=== PATIENT | male | born 1985 | race Caucasian/White ===

== ENCOUNTER 2017-07-05 15:25 | Observation (INO) | payer OTHER ==
--- NOTE | 2017-07-05 15:39 | PDOC ---
History of Present Illness - History of Present Illness Initial Comments: 07/05/17 16:00 Patient is a 32 year old male with a past medical history of DVTs (2) and chronic low back pain who presents with left leg pain since last night. Patient states last night he developed left thigh pain that radiates to his calf. Patient states that he took oxycodone last night for the leg pain which he normally takes for his chronic back pain. Patient was on Xarelto for his DVTs in the past. 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 Not on any current medications or blood thinners. He denies SOB, CP, h/o of blood clots in his chest. Allergies: NKDA PCP: Deondre Torres <Dian John - Last Filed: 07/05/17 17:20> <Esteban Vang - Last Filed: 07/05/17 18:16> - General Chief Complaint: Pain Stated Complaint: LEFT THIGH & CALF PAIN, DVT Time Seen by Provider: 07/05/17 15:38 Past History <Dian John - Last Filed: 07/05/17 17:20> - Past Medical History Anemia: No Asthma: No Cardiac Disorders: (DVT) COPD: No Dementia: No Diabetes: No HTN: No Hypercholesterolemia: No Liver Disease: No Seizures: No Thyroid Disease: No - Surgical History Abdominal Surgery: No Appendectomy: No Cardiac Surgery: No Cholecystectomy: No Lung Surgery: No - Suicide/Smoking/Psychosocial Hx Smoking History: Current every day smoker Have you smoked in the past 12 months: Yes Number of Cigarettes Smoked Daily: 20 'Breaking Loose' booklet given: 04/21/16 Hx Alcohol Use: Yes (social) Drug/Substance Use Hx: No Substance Use Type: Alcohol <Esteban Vang - Last Filed: 07/05/17 18:16> - Past Medical History Allergies/Adverse Reactions: Allergies Allergy/AdvReac Type Severity Reaction Status Date / Time [place] Allergy Verified 04/21/16 15:08 apple Allergy Verified 04/21/16 15:08 [place] Allergy Verified 04/21/16 15:08 No Known Drug Allergies Allergy Verified 04/21/16 15:08 Home Medications: Ambulatory Orders Lidocaine 5% Patch [Lidoderm -] 1 patch TP DAILY #30 patch 03/25/16 Methocarbamol [Robaxin] 500 mg PO TID PRN #30 tab 03/25/16 Oxycodone HCl/Acetaminophen [Percocet 5-325 mg Tablet] 2 tab PO TID PRN #18 tablet MDD 6 03/25/16 Enoxaparin Sodium [Lovenox] 140 mg SQ BID #60 ml 04/23/16 Oxycodone HCl/Acetaminophen [Percocet 10-325 mg Tablet] 1 each PO Q6H #10 tablet MDD 4 04/23/16 Review of Systems - Review of Systems Comments:: 07/05/17 16:01 CONSTITUTIONAL: Absent: fever, no chills, no fatigue EYES: Absent: visual changes ENT: Absent: ear pain, no sore throat CARDIOVASCULAR: Absent: chest pain, no palpitations RESPIRATORY: Absent: cough, no SOB GI: Absent: abdominal pain, no nausea, no vomiting, no constipation, no diarrhea GENITOURINARY: Absent: dysuria, no frequency, no hematuria MUSKULOSKELETAL: Present: left thigh/calf pain Absent: back pain, no arthralgia. SKIN: Absent: rash NEURO: Absent: headache <Dian John - Last Filed: 07/05/17 17:20> *Physical Exam - Vital Signs Last Vital Signs Temp Pulse Resp BP Pulse Ox 98.4 F 101 H 18 140/67 97 07/05/17 15:37 07/05/17 15:37 07/05/17 15:37 07/05/17 15:37 07/05/17 15:37 - Physical Exam Comments: 07/05/17 16:02 GENERAL: Well-appearing, well-nourished. No apparent distress. HEENT: Normocephalic, atraumatic. PERRL, EOM intact. CARDIOVASCULAR: Normal S1, S2. Regular rate and rhythm. PULMONARY: Clear to auscultation bilaterally. ABDOMEN: Soft, non-distended, non-tender. EXTREMITIES: Tenderness in left calf. No redness or sign of infection. Varicose veins noted. Normal ROM in all four extremities. SKIN: Warm, dry. No rash NEUROLOGICAL: No focal neurological deficits. <Dian John - Last Filed: 07/05/17 17:20> ED Treatment Course - RADIOLOGY Radiograph Interpretation: 07/05/17 17:18 US Vascular Leg Impression: DVT mild superficial femoral, popliteal and posterior tibial veins. Reported: Jamey Lozoya MD 07/05/17 1711 <Dian John - Last Filed: 07/05/17 17:20> - LABORATORY CBC & Chemistry Diagram: 07/05/17 17:15 07/05/17 17:15 - ADDITIONAL ORDERS Additional order review: 07/05/17 18:14 Positive DVT left leg Good pulses, painful left calf and thigh, varicosities as well Will admit patient to hospital Spoke with Hospitalist, Alessandro Driver Start on Lovenox, Alessandro Driver will decide on Coumadin or Xarelto again Pt is in agreement with plan <Esteban Vang - Last Filed: 07/05/17 18:16> *DC/Admit/Observation/Transfer - Attestations Scribe Attestion: 07/05/17 16:03 Documentation prepared by Dian John, acting as medical laboratory technicians for Esteban Vang MD. <Dian John - Last Filed: 07/05/17 17:20> - Discharge Dispostion Admit: Yes <Esteban Vang - Last Filed: 07/05/17 18:16> Diagnosis at time of Disposition: Left leg DVT Qualifiers: Affected thrombotic vein of extremity: popliteal Chronicity: acute Qualified Code(s): I82.432 - Acute embolism and thrombosis of left popliteal vein - Discharge Dispostion Condition at time of disposition: Good - Referrals Referrals: Deondre Torres [Primary Care Provider] - - Patient Instructions - Post Discharge Activity
[2017-07-05 15:50] VITALS: BMI 45.9
[2017-07-05 17:43] LABS: BASO % 0.6 % (0-2.0); EOS % 5.2 % (0-4.5); HEMATOCRIT 46.8 % (35.4-49); HEMOGLOBIN 15.4 GM/dl (11.7-16.9); LYMPH % 22.3 % (8-40); MCH 28.3 pg (25.7-33.7); MCHC 32.8 g/dl (32.0-35.9); MEAN CELL VOLUME 86.3 fl (80-96); MEAN PLT VOLUME 8.9 fl (7.5-11.1); MONO % 8.1 % (3.8-10.2); NEUT % 63.8 % (42.8-82.8); PLATELET COUNT 227 K/MM3 (134-434); RBC 5.43 M/mm3 (4.00-5.60); RDW 12.6 % (11.9-15.9); WHITE BLOOD COUNT 8.4 K/mm3 (4.0-10.8)
[2017-07-05 17:46] LABS: ALBUMIN 4.1 g/dl (3.5-5.0); ALK PHOS 81 U/L (32-92); ANION GAP 6 (8-16); BILIRUBIN,TOTAL 0.9 mg/dl (0.2-1.0); BLOOD UREA NITROGEN 9 mg/dl (7-18); CALCIUM 8.9 mg/dl (8.4-10.2); CHLORIDE 102 mmol/L (98-107); CO2 28 mmol/L (22-28); CREATININE 0.9 mg/dl (0.6-1.3); GLUCOSE,RANDOM 98 mg/dl (74-106); POTASSIUM 4.4 mmol/L (3.5-5.1); SGOT/AST 32 U/L (10-42); SGPT/ALT 42 U/L (10-40); SODIUM 136 mmol/L (136-145); TOT PROT 7.1 g/dl (6.4-8.3)
[2017-07-05 17:47] LABS: ACTIVATED PTT 29.4 SECONDS (24.0-38.9)
[2017-07-05 17:51] LABS: INR 1.12 (0.82-1.09); PROTHROMBIN TIME (PATIENT) 12.5 SEC (10.2-13.0)
[2017-07-05] MEDS ORDERED: ENOXAPARIN NA (PORCINE) 120 MG/0.8 ML DISP.SYRIN SQ SCH (18:30)
[2017-07-05] MEDS ORDERED: ENOXAPARIN NA (PORCINE) 120 MG/0.8 ML DISP.SYRIN SQ ONE (19:08)
--- NOTE | 2017-07-05 23:34 | HP ---
CHIEF COMPLAINT: Left Leg Pain PCP: HISTORY OF PRESENT ILLNESS: Thus is a 32 y/o man with a past medical history of Recurrent DVT, Chronic Back Pain, Current Smoker. Who presents to the ED with left leg pain x 1 day. Patient reports that the pain started while at rest waking him up. He describes it as sharp sheering pain. Patient reports being taken off of Xarelto 2 years ago. Patient denies SOB, CP, palpitations. Patient denies fever, chills, cough, AP, N/V/D, constipation, dysuria. ER course was notable for: (1) Doppler- DVT mid superficial femoral, popliteal and posterior tibial veins (2) (3) Recent Travel: None PAST MEDICAL HISTORY: See HPI PAST SURGICAL HISTORY: Social History: Smoking: Current 1PPD x 16 yrs Alcohol: Socially Drugs: None Family History: Maternal Grandmother- DVTs Allergies [place] Allergy (Verified 04/21/16 15:08) apple Allergy (Verified 04/21/16 15:08) [place] Allergy (Verified 04/21/16 15:08) No Known Drug Allergies Allergy (Verified 04/21/16 15:08) HOME MEDICATIONS: Home Medications Medication Instructions Recorded NK [No Known Home Medication] 07/05/17 REVIEW OF SYSTEMS CONSTITUTIONAL: Absent: fever, chills, diaphoresis, generalized weakness, malaise, loss of appetite, weight change HEENT: Absent: rhinorrhea, nasal congestion, throat pain, throat swelling, difficulty swallowing, mouth swelling, ear pain, eye pain, visual changes CARDIOVASCULAR: Absent: chest pain, syncope, palpitations, irregular heart rate, lightheadedness , peripheral edema RESPIRATORY: Absent: cough, shortness of breath, dyspnea with exertion, orthopnea, wheezing, stridor, hemoptysis GASTROINTESTINAL: Absent: abdominal pain, abdominal distension, nausea, vomiting, diarrhea, constipation, melena, hematochezia GENITOURINARY: Absent: dysuria, frequency, urgency, hesitancy, hematuria, flank pain, genital pain MUSCULOSKELETAL: myalgia, arthralgia, left leg swelling, back pain Absent: neck pain SKIN: redness to LLE Absent: rash, itching, pallor HEMATOLOGIC/IMMUNOLOGIC: Absent: easy bleeding, easy bruising, lymphadenopathy, frequent infections ENDOCRINE: Absent: unexplained weight gain, unexplained weight loss, heat intolerance, cold intolerance NEUROLOGIC: Absent: headache, focal weakness or paresthesias, dizziness, unsteady gait, seizure, mental status changes, bladder or bowel incontinence PSYCHIATRIC: Absent: anxiety, depression, suicidal or homicidal ideation, hallucinations. PHYSICAL EXAMINATION Vital Signs - 24 hr 07/05/17 07/05/17 15:37 23:31 Temperature 98.4 F 98.3 F Pulse Rate 101 H 80 Respiratory 18 20 Rate Blood Pressure 140/67 117/69 O2 Sat by Pulse 97 Oximetry (%) GENERAL: Awake, alert, and fully oriented, in no acute distress. HEAD: Normal with no signs of trauma. EYES: Pupils equal, round and reactive to light, extraocular movements intact, sclera anicteric, conjunctiva clear. No lid lag. EARS, NOSE, THROAT: Ears normal, nares patent, oropharynx clear without exudates. Moist mucous membranes. NECK: Normal range of motion, supple without lymphadenopathy, JVD, or masses. LUNGS: Breath sounds equal, clear to auscultation bilaterally. No wheezes, and no crackles. No accessory muscle use. HEART: Regular rate and rhythm, normal S1 and S2 without murmur, rub or gallop. ABDOMEN: Soft, obese nontender, not distended, normoactive bowel sounds, no guarding, no rebound, no masses. No hepatomegaly or splenomegaly. MUSCULOSKELETAL: Normal range of motion at all joints. No bony deformities or tenderness. No CVA tenderness. UPPER EXTREMITIES: 2+ pulses, warm, well-perfused. No cyanosis. No clubbing. No peripheral edema. LOWER EXTREMITIES: 2+ pulses, warm, well-perfused. +Left calf tenderness. +3 LLE pitting peripheral edema. +warmth, erythema and tenderness L- leg noted NEUROLOGICAL: Cranial nerves II-XII intact. Normal speech. Antalgic gait. PSYCHIATRIC: Cooperative. Good eye contact. Appropriate mood and affect. SKIN: Warm, dry, normal turgor, no rashes or lesions noted, normal capillary refill. Laboratory Results - last 24 hr 07/05/17 07/05/17 07/05/17 17:15 17:15 17:15 WBC 8.4 RBC 5.43 Hgb 15.4 D Hct 46.8 D MCV 86.3 MCH 28.3 MCHC 32.8 RDW 12.6 Plt Count 227 MPV 8.9 Neutrophils % 63.8 D Lymphocytes % 22.3 D Monocytes % 8.1 Eosinophils % 5.2 H Basophils % 0.6 PT with INR 12.5 INR 1.12 PTT (Actin FS) 29.4 Sodium 136 Potassium 4.4 Chloride 102 Carbon Dioxide 28 Anion Gap 6 L BUN 9 D Creatinine 0.9 Creat Clearance w eGFR > 60 Random Glucose 98 Calcium 8.9 Total Bilirubin 0.9 AST 32 D ALT 42 H D Alkaline Phosphatase 81 D Total Protein 7.1 Albumin 4.1 ASSESSMENT/PLAN: Problem List - Problem (1) Left leg DVT Assessment/Plan: - Hx recurrent DVT - No NOACs > 2 yrs - Doppler LLE report- DVT mid superficial femoral, popliteal and posterior tibial veins. - Wells Score 6 - FU with Heme when dc for further workup - Lovenox given in ED - Discussed in detail options on ACs from NOACs, to Coumadin, patient is undecided, would like time to think about his options - Will have Day team f/u - Continue Lovenox - Daily INRs - Elevate extremity - Oxycodone prn - Smoking cessation - Monitor CBC, BMP - Monitor vitals Code(s): I82.402 - ACUTE EMBOLISM AND THOMBOS UNSP DEEP VEINS OF L LOW EXTREM Qualifiers: Affected thrombotic vein of extremity: popliteal Chronicity: acute Qualified Code(s): I82.432 - Acute embolism and thrombosis of left popliteal vein (2) Tobacco dependence due to cigarettes Assessment/Plan: - Patient counseled on smoking cessation, he is amendable - Nicotine Patch Code(s): F17.210 - NICOTINE DEPENDENCE, CIGARETTES, UNCOMPLICATED (3) Back pain Assessment/Plan: - Continue to monitor and treat accordingly Code(s): M54.9 - DORSALGIA, UNSPECIFIED Qualifiers: Back pain location: low back pain Chronicity: chronic Back pain laterality: midline Sciatica presence: with sciatica Sciatica laterality: sciatica of right side Qualified Code(s): M54.41 - Lumbago with sciatica, right side; G89.29 - Other chronic pain; G89.29 - Other chronic pain (4) DVT prophylaxis Assessment/Plan: - OOB - Continue Lovenox SQ for Acute DVT Code(s): IWY2645 - Visit type - Emergency Visit Emergency Visit: Yes ED Registration Date: 07/05/17 Care time: The patient presented to the Emergency Department on the above date and was hospitalized for further evaluation of their emergent condition. - New Patient This patient is new to me today: Yes Date on this admission: 07/05/17 - Critical Care Critical Care patient: No
[2017-07-06] MEDS ORDERED: oxyCODONE HCL 5 MG TABLET ONE (00:52)
[2017-07-06] MEDS: oxyCODONE HCL 5 MG TABLET PO PRN ×3 (00:54→16:03)
[2017-07-06] MEDS ORDERED: ENOXAPARIN NA (PORCINE) 120 MG/0.8 ML DISP.SYRIN SQ SCH ×2 (07:00→22:00)
[2017-07-06] MEDS: DOCUSATE SODIUM 100 MG CAPSULE (FP) PO PRN ×2 (08:39→16:02)
[2017-07-06 09:02] LABS: INR 1.09 (0.82-1.09); PROTHROMBIN TIME (PATIENT) 12.2 SEC (10.2-13.0)
[2017-07-06 09:03] LABS: ANION GAP 5 (8-16); BLOOD UREA NITROGEN 9 mg/dl (7-18); CALCIUM 8.5 mg/dl (8.4-10.2); CHLORIDE 104 mmol/L (98-107); CO2 27 mmol/L (22-28); CREATININE 0.9 mg/dl (0.6-1.3); GLUCOSE,RANDOM 122 mg/dl (74-106); POTASSIUM 4.2 mmol/L (3.5-5.1); SODIUM 136 mmol/L (136-145)
[2017-07-06 09:18] LABS: BASO % 0.4 % (0-2.0); EOS % 7.6 % (0-4.5); HEMATOCRIT 40.3 % (35.4-49); HEMOGLOBIN 13.5 GM/dl (11.7-16.9); LYMPH % 37.6 % (8-40); MCH 29.1 pg (25.7-33.7); MCHC 33.6 g/dl (32.0-35.9); MEAN CELL VOLUME 86.8 fl (80-96); MEAN PLT VOLUME 9.6 fl (7.5-11.1); MONO % 8.6 % (3.8-10.2); NEUT % 45.8 % (42.8-82.8); PLATELET COUNT 177 K/MM3 (134-434); RBC 4.64 M/mm3 (4.00-5.60); RDW 12.4 % (11.9-15.9)
--- NOTE | 2017-07-06 12:52 | DS ---
Physical Exam: SUBJECTIVE: Patient seen and examined, ambulatory throughout nursing unit, reports pain to left calf, denies any chest pain or shortness of breath. OBJECTIVE: Thus is a 32 y/o man with a past medical history of Recurrent DVT, Chronic Back Pain, Current Smoker. Who presents to the ED with left leg pain x 1 day. Patient reports that the pain started while at rest waking him up. He describes it as sharp sheering pain. Patient reports being taken off of Xarelto 2 years ago. Patient denies SOB, CP, palpitations. Patient denies fever, chills, cough, AP, N/V/D, constipation, dysuria. ER course was notable for: (1) Doppler- DVT mid superficial femoral, popliteal and posterior tibial veins Vital Signs Period Temp Pulse Resp BP Sys/Cruz Pulse Ox Last 24 Hr 98.3 F-98.4 F 80-101 18-20 110-140/54-69 96-97 PHYSICAL EXAM GENERAL: The patient is awake, alert, and fully oriented, in no acute distress. HEAD: Normal with no signs of trauma. EYES: PERRL, extraocular movements intact, sclera anicteric, conjunctiva clear. ENT: Ears normal, nares patent, oropharynx clear without exudates, moist mucous membranes. NECK: Trachea midline, full range of motion, supple. LUNGS: Breath sounds equal, clear to auscultation bilaterally, no wheezes, no crackles, no accessory muscle use. HEART: Regular rate and rhythm, S1, S2 without murmur, rub or gallop. ABDOMEN: Soft, nontender, nondistended, normoactive bowel sounds, no guarding, no rebound, no hepatosplenomegaly, no masses. EXTREMITIES: 2+ pulses, warm, well-perfused, no edema. left lower extremity + meeta's sign, less than 3 second capillary refill, + 3 pedal pulse NEUROLOGICAL: Cranial nerves II through XII grossly intact. Normal speech, gait not observed. PSYCH: Normal mood, normal affect. SKIN: Warm, dry, normal turgor, no rashes or lesions noted. LABS Laboratory Results - last 24 hr 07/05/17 07/05/17 07/05/17 17:15 17:15 17:15 WBC 8.4 RBC 5.43 Hgb 15.4 D Hct 46.8 D MCV 86.3 MCH 28.3 MCHC 32.8 RDW 12.6 Plt Count 227 MPV 8.9 Neutrophils % 63.8 D Lymphocytes % 22.3 D Monocytes % 8.1 Eosinophils % 5.2 H Basophils % 0.6 PT with INR 12.5 INR 1.12 PTT (Actin FS) 29.4 Sodium 136 Potassium 4.4 Chloride 102 Carbon Dioxide 28 Anion Gap 6 L BUN 9 D Creatinine 0.9 Creat Clearance w eGFR > 60 Random Glucose 98 Calcium 8.9 Total Bilirubin 0.9 AST 32 D ALT 42 H D Alkaline Phosphatase 81 D Total Protein 7.1 Albumin 4.1 07/06/17 07/06/17 07/06/17 07:40 07:40 07:40 WBC 8.0 RBC 4.64 Hgb 13.5 D Hct 40.3 MCV 86.8 MCH 29.1 MCHC 33.6 RDW 12.4 Plt Count 177 D MPV 9.6 Neutrophils % 45.8 D Lymphocytes % 37.6 D Monocytes % 8.6 Eosinophils % 7.6 H Basophils % 0.4 PT with INR 12.2 INR 1.09 PTT (Actin FS) Sodium 136 Potassium 4.2 Chloride 104 Carbon Dioxide 27 Anion Gap 5 L BUN 9 Creatinine 0.9 Creat Clearance w eGFR Random Glucose 122 H D Calcium 8.5 Total Bilirubin AST ALT Alkaline Phosphatase Total Protein Albumin IMAGING left lower extremity ultrasound: dvt mid superficial, femoral, popliteal and posterior tibial veins HOSPITAL COURSE: patient was admitted from the emergency department to observation for a recurrent dvt. ultrasound reviewed. lengthy conversation and son in regards to anti-coagulation. patient has followed up with medical lab scientist, in [place] after last diagnosis of dvt. He reports completed 6 months of anti-coagulation and was discontinued. patient has elected to start coumadin. he was placed on coumadin with a lovenox bridge. Patient was given strict instructions that he must continue lovenox bid with coumadin daily an appointment was made with his pcp, Dr Torres for July 09 at 230pm for repeat INR. Patient verbalizes understanding on the importance of adhering to the prescribed anti- coagulation regimen. Date of Admission:07/05/17 Date of Discharge: 07/06/17 Minutes to complete discharge: 45 Discharge Summary Reason For Visit: DVT LEFT LEG Current Active Problems DVT prophylaxis (Acute) Left leg DVT (Acute) Tobacco dependence due to cigarettes (Acute) Condition: Good - Instructions Diet, Activity, Other Instructions: you were admitted to the hospital for DVT continue coumadin daily, your first dose of coumadin was given today continue lovenox injections twice a day as prescribed please keep scheduled appointment with your primary care physician Dr Torres for Sunday, at 230pm to recheck your INR please follow up with the medical lab scientist within 1 week Referrals: Elif Anderson MD [Staff Physician] - Deondre Torres [Primary Care Provider] - Disposition: HOME - Home Medications Comprehensive Discharge Medication List: Ambulatory Orders NK [No Known Home Medication] 07/05/17 This patient is new to me today: Yes Date on this admission: 07/06/17 Emergency Visit: Yes ED Registration Date: 07/05/17 Care time: The patient presented to the Emergency Department on the above date and was hospitalized for further evaluation of their emergent condition. Critical Care patient: No - Discharge Referral Referred to [facility] Med P.C.: No
[2017-07-06 14:17] VITALS: BP 121/69; PULSE 76; TEMP 98.9
[2017-07-06] MEDS ORDERED: WARFARIN NA 5 MG TABLET (UD) PO ONE (15:15)
[2017-07-06] MEDS ORDERED: ENOXAPARIN 120 MG, ENOXAPARIN 30 MG SQ SCH (22:00)
--- NOTE | 2017-07-11 15:00 | EKG ---
Test Reason : Blood Pressure : / mmHG Vent. Rate : 089 BPM Atrial Rate : 089 BPM P-R Int : 176 ms QRS Dur : 088 ms QT Int : 346 ms P-R-T Axes : 033 042 -07 degrees QTc Int : 420 ms NORMAL SINUS RHYTHM NONSPECIFIC T WAVE ABNORMALITY LEFT VENTRICULAR HYPERTROPHY ABNORMAL ECG NO PREVIOUS ECGS AVAILABLE Confirmed by ROSELYN GALICIA MD ([id number]) on 07/11/2017 3:00:04 PM Referred By: DR MCFADDEN Confirmed By:ROSELYN GALICIA MD
== END 2017-07-06 16:29 | disposition home or self-care (01) ==
LOC: FER 15:25 → FM/S 21:10
PROVIDERS: ADMIT Internal Medicine; ATTEND Nurse Practitioner Family
PROC: 3E013GC Introduction of Other Therapeutic Substance into Subcutaneous Tissue, Percutaneous Approach (ICD-10-PCS; principal; 2017-07-05)
DX: I82.432 Acute embolism and thrombosis of left popliteal vein (principal); I82.402 Acute embolism and thrombosis of unspecified deep veins of left lower extremity; Z86.718 Personal history of other venous thrombosis and embolism; F17.210 Nicotine dependence, cigarettes, uncomplicated; Z91.018 Allergy to other foods; M54.41 Lumbago with sciatica, right side; G89.29 Other chronic pain; Z79.01 Long term (current) use of anticoagulants
CPT/HCPCS: 36415; 80048; 80053; 85025; 85610; 85730; 93005; 93010; 93971-TC; 96372; 99283-25; G0378